=== PATIENT | male | born 1980 | race Caucasian/White ===

== ENCOUNTER 2021-04-09 22:17 | Emergency (ER) | payer OTHER ==
[~2021-04-09] VITALS: Ht 182.9 cm; Wt 77.1 kg
[2021-04-09 22:36] VITALS: BP 119/70
--- NOTE | 2021-04-09 22:36 | NUR ---
PT BIBS L THUMB LACERATION. PT A/OX4
--- NOTE | 2021-04-09 22:51 | NUR ---
WOUND CARE DONE
[2021-04-09] MEDS ORDERED: LIDOCAINE HCL/MPF 1% 30 ML VIAL IJ ONE (23:19)
[2021-04-09] MEDS ORDERED: LIDOCAINE 1% INJ 50 ML MDV IJ ONE (23:30)
--- NOTE | 2021-04-09 23:32 | NUR ---
DR. TRAN AT PT'S BEDSIDE DOING WOUND CARE PROCEDURE
[2021-04-10] MEDS ORDERED: TDAP [DIPH/PERTUSSIS/TET] 0.5 ML VIAL IM ONE ×2 (00:07)
--- NOTE | 2021-04-10 00:22 | NUR ---
Patient discharged to home in stable condition. Written and verbal after care instructions given. Patient verbalizes understanding of instruction. PT ambulatory with a steady gait. Dressing to L thumb kept c/d/i.
== END 2021-04-10 00:24 | disposition home or self-care (01) ==
LOC: ER 22:39
DX: S61.012A Laceration without foreign body of left thumb without damage to nail, initial encounter (principal); W26.0XXA Contact with knife, initial encounter; Y93.89 Activity, other specified; Y92.89 Other specified places as the place of occurrence of the external cause; Y99.8 Other external cause status
CPT/HCPCS: 12002; 90471; 90715; 99283; J3490